=== PATIENT | female | born 1985 | race Caucasian/White ===

== ENCOUNTER 2023-01-08 10:02 | Outpatient (CLI) | payer BC, SELFPAY ==
--- NOTE | ~2023-01-08 | US_ITS ---
EXAMINATION: US soft tissue UE LT DATE: 01/08/2023 10:29 INDICATION: Left palm lump. TECHNIQUE: Multiple grayscale and Doppler ultrasound images of the left hand were obtained. COMPARISON: None FINDINGS: In the left palm, there is a 1.5 x 0.6 x 1.3 cm mass that is hypoechoic to subcutaneous fat and isoechoic to muscle. IMPRESSION: 1. 1.5 cm mass in left palm, which may be benign or malignant. Consider MRI without and with contrast . Reviewed, dictated and finalized at location A. [facility] IMPRESSION: 1. 1.5 cm mass in left palm, which may be benign or malignant. Consider MRI wit hout and with contrast.
== END 2023-01-08 10:03 | disposition home or self-care (01) ==
PROVIDERS: PCP Family Medicine; Visit Provider Family Medicine
DX: R22.32 Localized swelling, mass and lump, left upper limb (principal)
CPT/HCPCS: 76882

== ENCOUNTER 2023-01-19 13:41 | Outpatient (CLI) | payer BC, SELFPAY ==
--- NOTE | ~2023-01-19 | MR_ITS ---
EXAMINATION: MR hand LT wo/w con DATE: 01/19/2023 14:48 INDICATION: Mass of hand. TECHNIQUE: Magnetic resonance imaging (MRI) of the left hand was performed without and with 12 mL Mul tiHance intravenous contrast. COMPARISON: Ultrasound 01/08/2023 FINDINGS: Bone alignment is normal. No fracture. Bone marrow signal intensity is normal. The flexor a nd extensor tendons are normal. In the palm superficial to the flexor tendons, there is a 1.6 x 1.0 x 2.7 cm nonenhancing mass with heterogeneous markedly increased T2-weighted signal intensity. The mas s is mildly hyperintense to muscle on precontrast T1-weighted images. IMPRESSION: 1. 2.7 cm nonenhancing mass in the palm, likely a ganglion cyst, synovial cyst, or hematoma. Reviewed, dictated and finalized at location A. [facility]
== END 2023-01-19 13:42 | disposition home or self-care (01) ==
PROVIDERS: PCP Family Medicine; Visit Provider Nurse Practitioner Gerontology
DX: R22.32 Localized swelling, mass and lump, left upper limb (principal)
CPT/HCPCS: 73220; A9577